=== PATIENT | female | born 1985 | race Caucasian/White ===

== ENCOUNTER 2019-02-07 21:07 | Inpatient (IN) | payer OTHER ==
[2019-02-07] MEDS ORDERED: Dinoprostone* 10 MG VAG.SUPP VAGINAL ONE (21:53)
[2019-02-07] MEDS ORDERED: Lactated Ringers 1000 ML Bag* 1,000 ML IV ONE (21:53)
[2019-02-07] MEDS ORDERED: Buffered Lidocaine 1% SYRIN* 1 ML/SYRINGE INTRADERM ONE (21:53)
[2019-02-07] MEDS ORDERED: Lactated Ringers 1000 ML Bag* 1,000 ML IV SCH (22:00)
--- NOTE | 2019-02-07 22:00 | HP ---
General Information - Reason for Visit Cervical ripening/IOL for gestational hypertension - General Information Maternal Age: 33 Grav: 2 Para: 1 SAB: 0 IEA: 0 Estimated Due Date: 02/06/19 Determined By: Early Ultrasound Maternal Blood Type and Rh: O Positive - Results this Serology/RPR Result: Non-Reactive Rubella Result: Immune HBsAg Result: Negative HIV Result: Negative GBS Culture Result: Negative Past Medical History Delivery History: Hx Uncomplicated Vaginal Delivery Pertinent Past Medical History: See Records Past Medical History Comment: Depression/Anxiety PTSD - was on medications (Prazosin 2 mg, paroxetine 20 mg, alprazolam 0.5 mg) [facility] with +U[facility] Pertinent Past Surgical History: See Records Past Surgical History Comment: Tonsillectomy w/ adenoidectomy [place] tooth extraction Pertinent Family History: Non-Contributory - Antepartal Records Antepartal Records: Reviewed, Complicated by: - 2 vessel cord, gestational hypertension Review of Systems Constitutional: Comfortable CV Complaint: No Respiratory: Shortness of Breath: No Gastrointestinal: No Nausea/Vomiting, Normal Bowel Movement Genitourinary: No Dysuria, No Bleeding, No Leaking Fluid Musculoskeletal: No Complaint, No Epigastric Pain Neurological: No Headache, No Visual Changes Movement: Normal Exam Allergies/Adverse Reactions: Allergies No Known Allergies Allergy (Verified 02/07/19 22:11) B/P: 140/85, P: 107, R: 18, T: 97.6 - Exam Breast: Breast Exam Deferred CVA: No CVA Tenderness Extremities: No Edema Heart: Normal Rhythm/Heart Sounds HEENT: No Significant Findings Lungs: Clear Bilaterally Reflexes: DTR 2+ Thyroid: No Thyromegaly - Abdominal Exam Abdomen Exam: Non-Tender, Fundal Height Consistent with Dates - Ultrasound/Biophysical Profile Ultrasound Status: Not Done Targeted Exam Findings See L&D Outpatient Visit Provider Note for Findings: N/A Estimated Weight: 8.5 lb by kerline's Cervical Exam: 1cm Effacement: 50% Station: -2 Presenting Part: Vertex Membrane Status: Intact Bleeding/Discharge: None EFM Findings - External Monitor Findings Baseline Heart Rate: 135 External Monitor Findings: Accelerations Present, No Pattern of Variable or Late Decelerations, Variability Moderate, Baseline Stable Contractions: None Assessment/Plan - Assessment A: IUP at 40 1/7 weeks Category I FHR, no evidence of metabolic acidemia Gestational hypertension GBS negative Heller score: 5 P: Discussed options: misoprostol, dinoprostone, cook cervical ripening balloon/ pitocin Baylee elects to try dinoprostone first Reviewed plan, may want to in tub, encouraged her to discuss with providers as labor progresses, knows she has to be able to get out of the tub quickly if needed. Also reviewed she must ask nurses and providers permission before videotaping them; aware she must stop filming in case of an emergency Reassess PRN Anticipate SVB - Obstetrical Risk Factors Obstetrical Risk Factors: Obesity, Gestational Hypertension - Plan Plan: Cervical Ripening, Admit - Anticipate Vaginal Delivery - Date/Time of Admission Date of Admission: 02/07/19 Time of Admission: 21:30
[2019-02-07 22:17] LABS: Urine Appearance Cloudy; Urine Bacteria Absent (Absent); Urine Bilirubin Negative (Negative); Urine Blood Negative (Negative); Urine Color Yellow; Urine Glucose Negative (Negative); Urine Ketones Negative (Negative); Urine Nitrite Negative (Negative); Urine Protein Negative (Negative); Urine Red Blood Cell Trace(0-2/hpf) (Absent); Urine Specific Gravity 1.014 (1.010-1.030); Urine Squamous Epithelial Cell Present (Absent); Urine Urobilinogen Negative (Negative); Urine White Blood Cell 2+(11-20/hpf) (Absent)
[2019-02-07] MEDS ORDERED: Promethazine INJ(RESTRICTED)* 25 MG/ML 1 ML VIAL IV PRN (22:35)
[2019-02-07] MEDS ORDERED: Nalbuphine* 10 MG/ML 1 ML VIAL IV PRN (22:35)
[2019-02-07 22:40] LABS: Urine Benzodiazepine Screen None Detected (None Detect); Urine Opiates Screen None Detected (None Detect)
[2019-02-08] MEDS ORDERED: Misoprostol TAB* 100 MCG VAGINAL ONE (10:50)
--- NOTE | 2019-02-08 10:57 | PN ---
Progress Note - Progress Note Date of Service: 02/08/19 Note: S: Pt slept some overnight. Reports mild cramping and contractions but nothing regular. Denies GARCIAS. No visual changes. No RUQ pain. Feeling ready to "get this show on the road" O: BP 141/77 HR 85 T 98.4 RR 20 FHT 135bpm. Moderate variability. +Accels. No decels UCs mild, irregular VE 2cm/60%/vtx -1, Heller's Score 6 A: IUP at 40-2/7 here for induction of labor Gestational hypertension No evidence of metabolic acidemia P: Counseled for ongoing induction including vaginal misoprostol vs. lee balloon vs. trial IV pitocin. All ?s answered. At this time pt agrees to vaginal misoprostol.
--- NOTE | 2019-02-08 15:32 | PN ---
Progress Note - Progress Note Date of Service: 02/08/19 Note: S: Starting to feel more regular UCs. Still able to speak through them O: BP 139/85 HR 78 RR 20 T 98.3 FHT 145bpm. Moderate variability. +Accels. No decels UCs q 1-3 min 4 hours s/p vaginal misoprostol VE 3cm/60%/vtx -1 A: IUP at 40-2/7 here for induction Gestational hypertension No evidence of metabolic acidemia P: Given contraction frequency will continue to monitor. Re-eval in 2 hours or sooner PRN
--- NOTE | 2019-02-08 17:34 | PN ---
Progress Note - Progress Note Date of Service: 02/08/19 Note: Quick note: Pt reports UCs continue but have spaced out. Would like to take a walk in the hallway then agrees to trial IV pitocin. VE deferred. FHT Cat I. Will initiate IV, labs and IV pitocin once she's done walking
[2019-02-08] MEDS ORDERED: Oxytocin in LR* 20 UNITS/1,000 ML BAG IVPB SCH (18:00)
[2019-02-08 18:19] LABS: ABS Basophils 0.1 10^3/ul (0-0.2); ABS Eosinophils 0.2 10^3/ul (0-0.6); ABS Lymphocytes 2.6 10^3/ul (1.0-4.8); ABS Monocytes 1.1 10^3/ul (0-0.8); ABS Neutrophils 8.9 10^3/ul (1.5-7.7); Eosinophil % 1.2 %; Hematocrit 33 % (35-47); Hemoglobin 11.2 g/dL (12.0-16.0); Lymphocyte % 20.4 %; Mean Corpuscular HGB Conc 34 g/dL (31-36); Mean Corpuscular Hemoglobin 29 pg (27-31); Mean Corpuscular Volume 86 fL (80-97); Mean Platelet Volume 8.8 fL (7.4-10.4); Nucleated Red Blood Cells % 0.1; Platelet Count 240 10^3/uL (150-450); Red Blood Count 3.83 10^6 /uL (3.70-4.87); Red Cell Distribution Width 15 % (10-15); White Blood Count 12.8 10^3/uL (3.5-10.8)
[2019-02-08 18:40] LABS: Albumin 3.5 g/dL (3.2-5.2); Albumin/Globulin Ratio 1.1 (1-3); BUN/Creatinine Ratio 14.1 (8-20); Calcium 9.4 mg/dL (8.6-10.3); EGFR African American 130.1 (>60); EGFR Non-African American 107.5 (>60); Globulin 3.1 g/dL (2-4); Potassium 3.9 mmol/L (3.5-5.0); Total Bilirubin 0.2 mg/dL (0.2-1.0); Total Protein 6.6 g/dL (6.4-8.9)
--- NOTE | 2019-02-08 21:22 | PN ---
Progress Note - Progress Note Date of Service: 02/08/19 Note: S: Pt coping well. Extended family at bedside O: BP 133/74 HR 79 FHT 145bpm. Moderate variability. +Accels. No decels. UCs q 2-4 IV pitocin at 6mu/min VE 3cm/60%/vtx -1 (unchanged) BP labs WNL A: IUP at 40-2/7 in latent labor No evidence of metabolic acidemia Gestational hypertension, normal labs P: Counseled for trial of [place] Balloon. PARQ. Pt and FOB agree.
[2019-02-09] MEDS ORDERED: Promethazine INJ(RESTRICTED)* 25 MG/ML 1 ML VIAL IV ONE (03:05)
[2019-02-09] MEDS ORDERED: Nalbuphine* 10 MG/ML 1 ML VIAL IV ONE (03:05)
--- NOTE | 2019-02-09 03:12 | PN ---
Progress Note - Progress Note Date of Service: 02/09/19 Note: S: Pt getting increasingly uncomfortable and tired. Desires IV pain relief to help with sleep. Had good relief in tub for a while but now wants some sleep. O: BP 140/64 HR 82 T 97.8 RR 20 FHT 145bpm. Moderate variability. +Accels. No decels UCs q 2-8 min, mild-mod VE deferred. Cook Catheter remains in place A: IUP at 40-3/7 in latent labor No evidence of metabolic acidemia Gestational hypertension P: Discontinue IV Pitocin. PARQ IV Nubain/Phenergan. Will leave Cook catheter in place. Enc rest.
--- NOTE | 2019-02-09 07:17 | PN ---
Progress Note - Progress Note Date of Service: 02/09/19 Note: Quick Note: Pt sleeping soundly s/p IV Nubain/Phenergan. Report to Julio Tena CNM who will assume care at 0800
--- NOTE | 2019-02-09 11:06 | PN ---
Progress Note - Progress Note Date of Service: 02/09/19 Note: S: Patient states she "needs something to help with contractions" because they are much stronger. Has been in bed on back/side. O: Cook's removed VE /-2 bloody show Pit @ 12 UCs q 3-4 min FHT 155, Cat 1 BP 130/77, T 98.5 A: IUP in active labor No evidence acidemia P: Discussion of pain management, patient opting for tub currently, still considering epidural. Anticipate SVB
[2019-02-09] MEDS ORDERED: OBEPIDURAL* 250 ML EPIDURAL ONE (12:01)
[2019-02-09] MEDS ORDERED: Lidocaine 1.5% EPI 1:200,000* 30 ML SDV ONE (12:20)
[2019-02-09] MEDS ORDERED: EPHEDrine (Pressors)* 50 MG/ML VIAL IV PUSH PRN ×2 (12:45)
[2019-02-09] MEDS ORDERED: Phenylephrine 40 MCG/ML SYRINGE IV PUSH PRN ×2 (12:45)
[2019-02-09] MEDS ORDERED: Sodium Citrate/Citric Acid* 15 ML UDC PO PRN (12:45)
[2019-02-09] MEDS ORDERED: Famotidine TAB* 20 MG PO PRN (12:45)
[2019-02-09] MEDS ORDERED: Lactated Ringers 1000 ML Bag* 1,000 ML IV ONE (12:45)
[2019-02-09] MEDS ORDERED: Lactated Ringers 1000 ML Bag* 1,000 ML IV SCH ×2 (13:00→16:00)
[2019-02-09] MEDS ORDERED: OBEPIDURAL* 250 ML EPIDURAL SCH (13:00)
[2019-02-09] MEDS ORDERED: Carboprost Tromethamine* 250 MCG INJ ONE (14:14)
[2019-02-09] MEDS ORDERED: Midazolam* 1 MG/ML 2 ML VIAL (2 MG) ONE (15:00)
--- NOTE | 2019-02-09 15:24 | OP ---
Operative Report - Detailed - Operation Details Date of Operation: 02/09/19 Date of : 87 Surgeon(s): YANG Mission Analyst(s): NONE Anesthesiologist(s): RENETTA Anesthesia: EPIDURAL AND MAC Pre-Op Diagnosis: RETAINED PLACENTA Post-Op Diagnosis: SAME Planned Operative Procedure(s): D&C Estimated Blood Loss: 100CCS IV Fluids: IV Specimen(s)/Culture(s) Description: POC Drains: NONE Counts: CORRECT Complications: NONE Findings: BLOOD CLOTS INSIDE UTERUS Brief History/Indications: POST HEMMORRHAGE AFTER PIT, METHERGINE AND HEMOBATE Description of Procedure: D&C
[2019-02-09] MEDS ORDERED: Misoprostol TAB* 200 MCG PR ONE (15:30)
[2019-02-09] MEDS ORDERED: Glycerin ADULT SUPP PR PRN (15:30)
[2019-02-09] MEDS ORDERED: Dibucaine 1% 28.35 GM TUBE PR PRN (15:30)
[2019-02-09] MEDS ORDERED: Witch Hazel PAD* JAR TOPICAL PRN (15:30)
[2019-02-09] MEDS ORDERED: Carboprost Tromethamine* 250 MCG INJ IM ONE (15:30)
[2019-02-09] MEDS ORDERED: Acetaminophen TAB* 325 MG PO PRN (15:30)
[2019-02-09] MEDS ORDERED: Misoprostol TAB* 200 MCG ONE ×2 (15:44)
[2019-02-09 15:52] LABS: ABS Basophils 0.2 10^3/ul (0-0.2); ABS Lymphocytes 1.8 10^3/ul (1.0-4.8); ABS Monocytes 1.3 10^3/ul (0-0.8); ABS Neutrophils 15.9 10^3/ul (1.5-7.7); Eosinophil % 0.2 %; Hematocrit 27 % (35-47); Hemoglobin 8.9 g/dL (12.0-16.0); Lymphocyte % 9.5 %; Mean Corpuscular HGB Conc 33 g/dL (31-36); Mean Corpuscular Hemoglobin 29 pg (27-31); Mean Corpuscular Volume 88 fL (80-97); Mean Platelet Volume 8.8 fL (7.4-10.4); Platelet Count 205 10^3/uL (150-450); Red Blood Count 3.09 10^6 /uL (3.70-4.87); Red Cell Distribution Width 15 % (10-15); White Blood Count 19.3 10^3/uL (3.5-10.8)
[2019-02-09] MEDS ORDERED: Naloxone* 0.4 MG/ML 1 ML VIAL IV PRN (15:56)
[2019-02-09] MEDS ORDERED: Ondansetron INJ* 2 MG/ML VIAL IV PRN (15:56)
[2019-02-09] MEDS ORDERED: Oxytocin in LR* 20 UNITS/1,000 ML BAG IVPB SCH (16:00)
--- NOTE | 2019-02-09 17:38 | OP ---
DATE OF OPERATION: 02/09/19 - ROOM #103 DATE OF : 87 SURGEON: Odalys Candelario MD. VACUUM CLEANER MECHANIC: None. ANESTHESIA: Epidural/MAC. PRE-OP DIAGNOSES: 1. Retained placenta. 2. hemorrhage. POST-OP DIAGNOSES: 1. Retained placenta. 2. hemorrhage. OPERATIVE PROCEDURE: D and C. DRAINS: None. SPECIMENS: Products of conception. ESTIMATED BLOOD LOSS: 100 cc. COMPLICATIONS: None. FINDINGS: The patient was found to have multiple clots up inside the endometrial cavity. Cervix was slightly dilated. INDICATIONS FOR SURGERY: The patient had hemorrhage after treatment for hemorrhage and she still has multiple blood clots in the cervical os. DESCRIPTION OF PROCEDURE: The patient had a speculum placed inside the vagina. Cervix was grasped with the clamp and we curetted the endometrial cavity with sharp curettage, yielding a moderate amount of tissue. We also pulled some large clots out of the endometrial cavity. Until we felt the uterus was clean, we continued the curettage. The patient had minimal bleeding. The curettage was terminated. Speculum was removed from the vagina. The patient tolerated the procedure well. She was returned to the recovery room in stable condition. [id number]/CPS #: [id number] TRAY
--- NOTE | 2019-02-09 19:15 | PROCNOTE ---
[facility] OB: Delivery Note - Delivery A Date of : 02/09/19 Time of : 13:55 [place] Sex: Female Weight at : 8 lb 9 oz Score 1 Minute: 7 Score 5 Minutes: 9 Gestational Age in Weeks and Days at Delivery: 40 Weeks and 3 Days Delivery Method: Spontaneous Vaginal Labor: Spontaneous Did Patient attempt ?: N/A, No Previous Amniotic Fluid: Clear Estimated Blood Loss: 700 Anesthesia/Analgesia: CEI for Labor Delivered By: Swathi Tena - Nursery Level of Nursery: Regular/Bedside - Perineum Perineal Injury: None/Intact Perineal Repair: None - Events Delivery Events of Note: Pitocin During Labor, Post- Bleeding - Meds Given , D+C Post-Delivery Delivery Events of Note Comment: post hemmorhage, compound presentation, nuchal cord x1, 2 vessel cord - Risk for Falls Delivered OB Patient- Risk for Falls: Heavy Bleeding, Low Hematocrit (<29) Fall Risk: Patient is at High Risk for Falls - Additional Delivery Notes Additional Delivery Notes: Patient admitted 02/07 for cervical ripening/induction for GHTN. Cervidil and Cooks catheter with pitocin lead to active labor with quick progression to complete. Total length of active labor 5'54", pushed 19 min. Baby born @ 1355 OA to DARRYL with compound hand and nuchal cord X1. Delivered to maternal abdomen with HR >110, spontaneous cry with dry and stimulation. Cord doubly clamped and cut by FOB once pulsations ceased at approx 5 minutes. Placenta delivered with gentle cord traction @ 1404. Noted to have 2VC, extensive calcifications, accessory lobe and trailing membranes. Appeared intact on inspection. Minor labial abrasions were hemostatic and not repaired. Fundus firmed to massage but became soft with brisk bleeding with pitocin infusing. Cytotec 800mcg CO given with continued steady trickle. Hemabate 250mch IM given with continued bleeding. Total EBL 700ml. Consult with valerie Taylor MD and decision made for D&C in OR. After procedure, patient with significant hypotension despite interventions and 2 units PRBC given with excellent recovery. Patient able to breastfeed in PACU, both mother and baby stable.
[2019-02-09] MEDS: Docusate CAP* 100 MG PO SCH (21:45)
[2019-02-09] MEDS: Ibuprofen TAB* 600 MG PO PRN (21:45)
[2019-02-10] MEDS: Ibuprofen TAB* 600 MG PO PRN ×2 (09:00→20:36)
[2019-02-10] MEDS: Docusate CAP* 100 MG PO SCH ×3 (09:00→20:37)
[2019-02-10] MEDS: Ferrous Gluconate TAB* 324 MG TAB PO SCH ×2 (09:00→20:36)
[2019-02-10 09:16] LABS: Hematocrit 31 % (35-47); Hemoglobin 10.6 g/dL (12.0-16.0); Mean Corpuscular HGB Conc 34 g/dL (31-36); Mean Corpuscular Hemoglobin 29 pg (27-31); Mean Corpuscular Volume 86 fL (80-97); Mean Platelet Volume 8.7 fL (7.4-10.4); Platelet Count 199 10^3/uL (150-450); Red Blood Count 3.62 10^6 /uL (3.70-4.87); Red Cell Distribution Width 15 % (10-15); White Blood Count 17.5 10^3/uL (3.5-10.8)
[2019-02-10 10:06] LABS: ABS Basophils 0.1 10^3/ul (0-0.2); ABS Eosinophils 0.2 10^3/ul (0-0.6); ABS Lymphocytes 2.9 10^3/ul (1.0-4.8); ABS Monocytes 1.6 10^3/ul (0-0.8); ABS Neutrophils 12.8 10^3/ul (1.5-7.7); Eosinophil % 1.1 %; Lymphocyte % 16.6 %; Nucleated Red Blood Cells % 0.1
[2019-02-11 07:51] VITALS: BP 136/80
[2019-02-11] MEDS: Docusate CAP* 100 MG PO SCH (08:40)
[2019-02-11] MEDS: Ferrous Gluconate TAB* 324 MG TAB PO SCH (08:50)
[2019-02-11] MEDS: Ibuprofen TAB* 600 MG PO PRN (08:51)
== END 2019-02-11 10:45 | disposition home or self-care (01) | DRG 798 ==
LOC: MCHOBOUT 21:07 → MCHOB 22:14
PROVIDERS: ADMIT Midwife; ATTEND Midwife
PROC: 10D17ZZ Extraction of Products of Conception, Retained, Via Natural or Artificial Opening (ICD-10-PCS; 2019-02-09)
PROC: 3E0P7VZ Introduction of Hormone into Female Reproductive, Via Natural or Artificial Opening (ICD-10-PCS; 2019-02-09)
PROC: 0U7C7ZZ Dilation of Cervix, Via Natural or Artificial Opening (ICD-10-PCS; 2019-02-09)
PROC: 3E033VJ Introduction of Other Hormone into Peripheral Vein, Percutaneous Approach (ICD-10-PCS; 2019-02-09)
PROC: 4A1HXCZ Monitoring of Products of Conception, Cardiac Rate, External Approach (ICD-10-PCS; 2019-02-09)
PROC: 30233N1 Transfusion of Nonautologous Red Blood Cells into Peripheral Vein, Percutaneous Approach (ICD-10-PCS; 2019-02-09)
PROC: 10E0XZZ Delivery of Products of Conception, External Approach (ICD-10-PCS; principal; 2019-02-09 14:54)
DX: O13.4 Gestational [pregnancy-induced] hypertension without significant proteinuria, complicating childbirth (principal); Z37.0 Single live birth; O48.0 Post-term pregnancy; O72.2 Delayed and secondary postpartum hemorrhage; O99.43 Diseases of the circulatory system complicating the puerperium; O69.81X0 Labor and delivery complicated by cord around neck, without compression, not applicable or unspecified; O32.6XX0 Maternal care for compound presentation, not applicable or unspecified; O69.89X0 Labor and delivery complicated by other cord complications, not applicable or unspecified; O43.193 Other malformation of placenta, third trimester; O71.82 Other specified trauma to perineum and vulva; I95.9 Hypotension, unspecified; O99.214 Obesity complicating childbirth; O90.81 Anemia of the puerperium; K21.9 Gastro-esophageal reflux disease without esophagitis; O99.62 Diseases of the digestive system complicating childbirth; Z3A.40 40 weeks gestation of pregnancy
CPT/HCPCS: 36415; 80053; 80307; 81003; 81015; 84550; 85025; 86850; 86900; 86901; 86922; 87086; 88305; A9270-GY; J2250; J2300; J2550; P9040; S0191